=== PATIENT | male | born 1960 | race African-American/Black ===

== ENCOUNTER 2019-09-16 10:56 | Inpatient (IN) ==
[2019-09-16] MEDS ORDERED: ASPIRIN 325 MG TABLET PO STA (11:19)
[2019-09-16 12:05] LABS: Basophils % 0.4 % (0.0-0.8); Eosinophils # 0.2 10*3/uL (0.0-0.87); Eosinophils % 2.9 % (0.00-10.9); Hemoglobin 13.2 GM/DL (14.0-18.0); Immature Granulocytes % 0.2 %; Immature Granulocytes Absolute 0.01 #; Lymphocytes # 1.3 10*3/uL (1.4-4.0); Lymphocytes % 24.3 % (21.2-54.2); Mean Corpuscular HGB Conc 32.2 GM/DL (32-36); Mean Corpuscular Volume 86.1 FL (87-102); Mean Platelet Volume 9.5 FL (9.6-12.0); Monocytes % 7.2 % (1.7-12.7); Platelet Count 301 T/CUMM (130-400); Red Blood Count 4.76 MC/CUMM (3.8-5.5); Red Cell Distribution Width 13.7 % (9.3-17.3); White Blood Count 5.5 T/CUMM (4-12)
[2019-09-16 12:15] LABS: INR 1.1; Partial Thromboplastin Time 31.5 SECS (20.8-36.0)
[2019-09-16 12:23] LABS: Albumin 2.7 G/DL (3.4-5.0); Bilirubin,Total 0.9 MG/DL (0.2-1.0); Calcium 9.1 MG/DL (8.5-10.1); Total Protein 8.3 G/DL (6.4-8.3)
[2019-09-16] MEDS ORDERED: LORazepam 1 MG TABLET PO PRN (15:35)
[2019-09-16] MEDS ORDERED: POTASSIUM CHLORIDE RIDER 10 MEQ in PREMIX 1 EACH IV PRN (15:45)
[2019-09-16] MEDS ORDERED: ACETAMINOPHEN 325 MG TABLET PO PRN (15:45)
[2019-09-16] MEDS ORDERED: PROMETHAZINE 25 MG/1 ML VIAL IM PRN (15:45)
[2019-09-16] MEDS ORDERED: ONDANSETRON 4 MG/2 ML VIAL IV PRN (15:45)
[2019-09-16 16:24] LABS: Risk Ratio 3.03; Thyroid Stimulating Hormone 1.62 uIU/ml (0.358-3.74); VLDL CHOLESTEROL 12.4 MG/DL
[2019-09-16] MEDS: SODIUM CHLORIDE 0.9% 1,000 ML IV SCH (17:08)
[2019-09-16 17:17] LABS: Barbiturates Screen,Urine Negative (Negative); Benzodiazepines Screen,Urine Negative (Negative); Cannabinoid Screen,Urine Negative (Negative); Opiate Screen,Urine Negative (Negative); Phencyclidine Screen,Urine Negative (Negative)
[2019-09-16] MEDS: cefTRIAXone 1,000 MG in SYRINGE 1 EACH IV SCH (18:32)
[2019-09-16] MEDS: AZITHROMYCIN INJ 500 MG in SODIUM CHLORIDE 0.9% 250 ML IV SCH (18:39)
[2019-09-16 19:23] LABS: HIV Antigen/Antibody Result Nonreactive (Nonreactive)
[2019-09-16 19:25] LABS: Hepatitis B Core IgM Quant < 0.05 Index; Hepatitis B Surface Ag Quant < 0.10 Index; Hepatitis B Surface Ag Result Negative (Negative); Hepatitis C Virus Ab Quant 0.21 Index; Hepatitis C Virus Ab Result Negative (Negative)
[2019-09-16] MEDS: ALBUTEROL/IPRATROPIUM 3 ML NEB RESP TX SCH (19:27)
[2019-09-16] MEDS: DOCUSATE SODIUM 100 MG CAPSULE PO SCH (20:39)
[2019-09-16] MEDS: guaiFENesin/DM ER 600-30 MG TABLET PO SCH (20:39)
[2019-09-17] MEDS: ALBUTEROL/IPRATROPIUM 3 ML NEB RESP TX SCH ×5 (00:46→20:18)
[2019-09-17] MEDS: SODIUM CHLORIDE 0.9% 1,000 ML IV SCH ×2 (06:01→21:51)
[2019-09-17 06:53] LABS: Basophils % 0.3 % (0.0-0.8); Eosinophils # 0.3 10*3/uL (0.0-0.87); Eosinophils % 4.1 % (0.00-10.9); Hematocrit 38.2 VOL% (42.0-52.0); Hemoglobin 12.4 GM/DL (14.0-18.0); Immature Granulocytes % 0.2 %; Immature Granulocytes Absolute 0.01 #; Lymphocytes # 1.7 10*3/uL (1.4-4.0); Lymphocytes % 27.4 % (21.2-54.2); Mean Corpuscular HGB Conc 32.5 GM/DL (32-36); Mean Corpuscular Volume 86.4 FL (87-102); Mean Platelet Volume 9.7 FL (9.6-12.0); Platelet Count 273 T/CUMM (130-400); Red Blood Count 4.42 MC/CUMM (3.8-5.5); Red Cell Distribution Width 13.6 % (9.3-17.3); White Blood Count 6.1 T/CUMM (4-12)
[2019-09-17 07:20] LABS: Albumin 2.6 G/DL (3.4-5.0); Calcium 8.6 MG/DL (8.5-10.1); Osmolality,Calculated 274.5 MOS/KG (273-304); Total Protein 7.7 G/DL (6.4-8.3)
[2019-09-17 07:30] LABS: Folate 7.8 NG/ML (5.4-24.0)
[2019-09-17] MEDS ORDERED: DIAZEPAM 5 MG TABLET PO ONE (09:37)
[2019-09-17] MEDS: guaiFENesin/DM ER 600-30 MG TABLET PO SCH ×2 (13:37→20:29)
[2019-09-17] MEDS: NICOTINE 21 MG/24 HR PATCH TRANSDERM SCH (13:37)
[2019-09-17] MEDS: methylPREDNISolone SOD SUC 40 MG/1 ML VIAL IV SCH ×2 (13:38→18:25)
[2019-09-17] MEDS: FOLIC ACID 1 MG TABLET PO SCH (13:38)
[2019-09-17] MEDS: DOCUSATE SODIUM 100 MG CAPSULE PO SCH ×2 (13:38→20:29)
[2019-09-17] MEDS: MULTIVITAMIN (CENTRUM) TABLET PO SCH (13:38)
[2019-09-17] MEDS: THIAMINE 200 MG/2 ML VIAL IV SCH (13:47)
[2019-09-17] MEDS: cefTRIAXone 1,000 MG in SYRINGE 1 EACH IV SCH (18:20)
[2019-09-17] MEDS: AZITHROMYCIN INJ 500 MG in SODIUM CHLORIDE 0.9% 250 ML IV SCH (18:22)
[2019-09-18] MEDS: ALBUTEROL/IPRATROPIUM 3 ML NEB RESP TX SCH ×3 (00:35→13:58)
[2019-09-18] MEDS: methylPREDNISolone SOD SUC 40 MG/1 ML VIAL IV SCH ×3 (03:21→17:38)
[2019-09-18 05:46] LABS: Hematocrit 38.4 VOL% (42.0-52.0); Hemoglobin 12.5 GM/DL (14.0-18.0); Immature Granulocytes % 0.2 %; Immature Granulocytes Absolute 0.01 #; Lymphocytes # 0.8 10*3/uL (1.4-4.0); Lymphocytes % 12.4 % (21.2-54.2); Mean Corpuscular HGB Conc 32.6 GM/DL (32-36); Mean Corpuscular Volume 85.7 FL (87-102); Mean Platelet Volume 9.8 FL (9.6-12.0); Monocytes % 1.4 % (1.7-12.7); Platelet Count 286 T/CUMM (130-400); Red Blood Count 4.48 MC/CUMM (3.8-5.5); Red Cell Distribution Width 13.5 % (9.3-17.3); White Blood Count 6.2 T/CUMM (4-12)
[2019-09-18 06:09] LABS: Albumin 2.5 G/DL (3.4-5.0); Bilirubin,Total 0.5 MG/DL (0.2-1.0); Total Protein 7.9 G/DL (6.4-8.3)
[2019-09-18] MEDS: THIAMINE 200 MG/2 ML VIAL IV SCH (09:56)
[2019-09-18] MEDS: FOLIC ACID 1 MG TABLET PO SCH (09:56)
[2019-09-18] MEDS: MULTIVITAMIN (CENTRUM) TABLET PO SCH (09:57)
[2019-09-18] MEDS: DOCUSATE SODIUM 100 MG CAPSULE PO SCH ×2 (09:57→21:49)
[2019-09-18] MEDS: guaiFENesin/DM ER 600-30 MG TABLET PO SCH ×2 (09:57→21:49)
[2019-09-18] MEDS: NICOTINE 21 MG/24 HR PATCH TRANSDERM SCH (09:57)
[2019-09-18] MEDS: cefTRIAXone 1,000 MG in SYRINGE 1 EACH IV SCH (17:10)
[2019-09-19] MEDS: ALBUTEROL/IPRATROPIUM 3 ML NEB RESP TX SCH ×4 (01:16→19:47)
[2019-09-19] MEDS: methylPREDNISolone SOD SUC 40 MG/1 ML VIAL IV SCH ×3 (02:44→17:50)
[2019-09-19 05:58] LABS: Basophils % 0.1 % (0.0-0.8); Hematocrit 36.6 VOL% (42.0-52.0); Immature Granulocytes % 0.5 %; Immature Granulocytes Absolute 0.06 #; Lymphocytes # 0.7 10*3/uL (1.4-4.0); Lymphocytes % 5.4 % (21.2-54.2); Mean Corpuscular HGB Conc 32.8 GM/DL (32-36); Mean Corpuscular Volume 85.7 FL (87-102); Mean Platelet Volume 9.9 FL (9.6-12.0); Platelet Count 283 T/CUMM (130-400); Red Blood Count 4.27 MC/CUMM (3.8-5.5); Red Cell Distribution Width 13.6 % (9.3-17.3); White Blood Count 11.9 T/CUMM (4-12)
[2019-09-19 06:18] LABS: Alanine Aminotransferase 14 U/L (16-61); Albumin 2.5 G/DL (3.4-5.0); Alkaline Phosphatase 140 U/L (45-117); Aspartate Amino Transferase 11 U/L (0-37); Bilirubin,Total < 0.39 MG/DL (0.2-1.0); Blood Urea Nitrogen 13 MG/DL (7-18); Calcium 8.8 MG/DL (8.5-10.1); Estimated Glom Filtration Rate 125 ML/MIN; Glucose 108 MG/DL (74-106); Osmolality,Calculated 270.1 MOS/KG (273-304); Total Protein 7.3 G/DL (6.4-8.3)
[2019-09-19 06:48] LABS: Band Neutrophils 1 % (0-10); Lymphocytes 4 % (20-55); Platelet Estimate Normal; Segmented Neutrophils 94 % (50-85); Total Cells Counted 100
[2019-09-19] MEDS: MULTIVITAMIN (CENTRUM) TABLET PO SCH (09:00)
[2019-09-19] MEDS: FOLIC ACID 1 MG TABLET PO SCH (09:00)
[2019-09-19] MEDS: guaiFENesin/DM ER 600-30 MG TABLET PO SCH ×2 (09:00→20:49)
[2019-09-19] MEDS: NICOTINE 21 MG/24 HR PATCH TRANSDERM SCH (09:00)
[2019-09-19] MEDS: AZITHROMYCIN 250 MG TABLET PO SCH (09:01)
[2019-09-19] MEDS: DOCUSATE SODIUM 100 MG CAPSULE PO SCH ×2 (09:01→20:49)
[2019-09-19] MEDS: THIAMINE 200 MG/2 ML VIAL IV SCH (09:01)
[2019-09-19] MEDS: cefTRIAXone 1,000 MG in SYRINGE 1 EACH IV SCH (16:57)
[2019-09-19] MEDS: MORPHINE 4 MG/1 ML VIAL IV PRN (23:46)
[2019-09-20] MEDS: ALBUTEROL/IPRATROPIUM 3 ML NEB RESP TX SCH ×4 (00:56→19:35)
[2019-09-20] MEDS: methylPREDNISolone SOD SUC 40 MG/1 ML VIAL IV SCH ×3 (02:52→18:56)
[2019-09-20 05:43] LABS: Basophils % 0.1 % (0.0-0.8); Hematocrit 35.8 VOL% (42.0-52.0); Hemoglobin 11.7 GM/DL (14.0-18.0); Immature Granulocytes % 0.2 %; Immature Granulocytes Absolute 0.02 #; Lymphocytes % 11.9 % (21.2-54.2); Mean Corpuscular HGB Conc 32.7 GM/DL (32-36); Mean Corpuscular Volume 86.1 FL (87-102); Mean Platelet Volume 10.2 FL (9.6-12.0); Monocytes % 3.9 % (1.7-12.7); Neutrophils % 83.9 % (38.7-73.9); Platelet Count 288 T/CUMM (130-400); Red Blood Count 4.16 MC/CUMM (3.8-5.5); Red Cell Distribution Width 13.8 % (9.3-17.3); White Blood Count 8.5 T/CUMM (4-12)
[2019-09-20 06:02] LABS: Albumin 2.6 G/DL (3.4-5.0); Bilirubin,Total 0.4 MG/DL (0.2-1.0); Calcium 8.7 MG/DL (8.5-10.1); Osmolality,Calculated 275.7 MOS/KG (273-304); Total Protein 7.3 G/DL (6.4-8.3)
[2019-09-20] MEDS: NICOTINE 21 MG/24 HR PATCH TRANSDERM SCH (09:36)
[2019-09-20] MEDS: DOCUSATE SODIUM 100 MG CAPSULE PO SCH ×2 (09:37→20:28)
[2019-09-20] MEDS: THIAMINE 200 MG/2 ML VIAL IV SCH (09:37)
[2019-09-20] MEDS: MULTIVITAMIN (CENTRUM) TABLET PO SCH (09:37)
[2019-09-20] MEDS: guaiFENesin/DM ER 600-30 MG TABLET PO SCH ×2 (09:37→20:28)
[2019-09-20] MEDS: AZITHROMYCIN 250 MG TABLET PO SCH (09:41)
[2019-09-20] MEDS: FOLIC ACID 1 MG TABLET PO SCH (09:42)
[2019-09-20] MEDS: cefTRIAXone 1,000 MG in SYRINGE 1 EACH IV SCH (18:56)
[2019-09-21] MEDS: ALBUTEROL/IPRATROPIUM 3 ML NEB RESP TX SCH ×4 (00:50→19:43)
[2019-09-21] MEDS: methylPREDNISolone SOD SUC 40 MG/1 ML VIAL IV SCH ×3 (02:11→18:31)
[2019-09-21] MEDS: NICOTINE 21 MG/24 HR PATCH TRANSDERM SCH (09:24)
[2019-09-21] MEDS: DOCUSATE SODIUM 100 MG CAPSULE PO SCH ×2 (09:25→23:57)
[2019-09-21] MEDS: guaiFENesin/DM ER 600-30 MG TABLET PO SCH ×2 (09:25→20:44)
[2019-09-21] MEDS: FOLIC ACID 1 MG TABLET PO SCH (09:25)
[2019-09-21] MEDS: AZITHROMYCIN 250 MG TABLET PO SCH (09:25)
[2019-09-21] MEDS: MULTIVITAMIN (CENTRUM) TABLET PO SCH (09:26)
[2019-09-21] MEDS: THIAMINE 200 MG/2 ML VIAL IV SCH (09:26)
[2019-09-21] MEDS: MORPHINE 4 MG/1 ML VIAL IV PRN ×2 (11:27→20:57)
[2019-09-21] MEDS: cefTRIAXone 1,000 MG in SYRINGE 1 EACH IV SCH (17:05)
[2019-09-22] MEDS: ALBUTEROL/IPRATROPIUM 3 ML NEB RESP TX SCH ×4 (02:04→19:42)
[2019-09-22] MEDS: methylPREDNISolone SOD SUC 40 MG/1 ML VIAL IV SCH ×3 (03:16→18:02)
[2019-09-22] MEDS: NICOTINE 21 MG/24 HR PATCH TRANSDERM SCH (10:09)
[2019-09-22] MEDS: FOLIC ACID 1 MG TABLET PO SCH (10:10)
[2019-09-22] MEDS: MULTIVITAMIN (CENTRUM) TABLET PO SCH (10:10)
[2019-09-22] MEDS: AZITHROMYCIN 250 MG TABLET PO SCH (10:10)
[2019-09-22] MEDS: guaiFENesin/DM ER 600-30 MG TABLET PO SCH ×2 (10:10→20:50)
[2019-09-22] MEDS: DOCUSATE SODIUM 100 MG CAPSULE PO SCH ×2 (10:10→20:48)
[2019-09-22] MEDS: THIAMINE 200 MG/2 ML VIAL IV SCH (10:11)
[2019-09-22] MEDS: cefTRIAXone 1,000 MG in SYRINGE 1 EACH IV SCH (15:46)
[2019-09-22] MEDS: LIDOCAINE 5% PATCH TRANSDERM SCH (20:49)
[2019-09-22] MEDS: oxyCODONE/ACETAMINOPHEN 5-325 MG TABLET PO PRN (20:49)
[2019-09-23] MEDS: ALBUTEROL/IPRATROPIUM 3 ML NEB RESP TX SCH ×4 (00:42→20:07)
[2019-09-23 05:06] LABS: QuantiFERON-Tb Gold Pl Negative (Negative); TB2 Ag Minus Result 0 IU/mL
[2019-09-23] MEDS: oxyCODONE/ACETAMINOPHEN 5-325 MG TABLET PO PRN ×3 (06:02→21:09)
[2019-09-23] MEDS: LIDOCAINE 5% PATCH TRANSDERM SCH ×2 (06:02→18:41)
[2019-09-23] MEDS: methylPREDNISolone SOD SUC 40 MG/1 ML VIAL IV SCH ×2 (07:39→18:41)
[2019-09-23] MEDS ORDERED: SODIUM PHOSPHATE ENEMA 133 ML BOTTLE RECTAL PRN (08:24)
[2019-09-23] MEDS ORDERED: LACTULOSE 20 GM/30 ML UDCUP PO PRN (08:24)
[2019-09-23] MEDS: FOLIC ACID 1 MG TABLET PO SCH (08:40)
[2019-09-23] MEDS: AZITHROMYCIN 250 MG TABLET PO SCH (08:40)
[2019-09-23] MEDS: MULTIVITAMIN (CENTRUM) TABLET PO SCH (08:40)
[2019-09-23] MEDS: THIAMINE 200 MG/2 ML VIAL IV SCH (08:40)
[2019-09-23] MEDS: guaiFENesin/DM ER 600-30 MG TABLET PO SCH ×2 (08:40→21:09)
[2019-09-23] MEDS: DOCUSATE SODIUM 100 MG CAPSULE PO SCH ×2 (08:41→21:08)
[2019-09-23] MEDS: NICOTINE 21 MG/24 HR PATCH TRANSDERM SCH (08:41)
[2019-09-23] MEDS: cefTRIAXone 1,000 MG in SYRINGE 1 EACH IV SCH (16:14)
[2019-09-24] MEDS: ALBUTEROL/IPRATROPIUM 3 ML NEB RESP TX SCH ×3 (00:33→13:30)
[2019-09-24] MEDS: oxyCODONE/ACETAMINOPHEN 5-325 MG TABLET PO PRN (06:12)
[2019-09-24] MEDS: methylPREDNISolone SOD SUC 40 MG/1 ML VIAL IV SCH (06:12)
[2019-09-24] MEDS: LIDOCAINE 5% PATCH TRANSDERM SCH (06:14)
[2019-09-24] MEDS: NICOTINE 21 MG/24 HR PATCH TRANSDERM SCH (08:58)
[2019-09-24] MEDS: DOCUSATE SODIUM 100 MG CAPSULE PO SCH (08:58)
[2019-09-24] MEDS: MULTIVITAMIN (CENTRUM) TABLET PO SCH (08:58)
[2019-09-24] MEDS: THIAMINE 200 MG/2 ML VIAL IV SCH (08:58)
[2019-09-24] MEDS: guaiFENesin/DM ER 600-30 MG TABLET PO SCH (08:58)
[2019-09-24] MEDS: FOLIC ACID 1 MG TABLET PO SCH (08:58)
[2019-09-24 16:00] VITALS: BP 136/80
== END 2019-09-24 16:12 | disposition home or self-care (01) | DRG 181 ==
LOC: N.ED 10:56 → N.EDINP 15:32 → SUATTDRO 15:32 → N.4E 17:13
PROVIDERS: ADMIT Internal Medicine Cardiovascular Disease; ATTEND Internal Medicine

== ENCOUNTER 2021-03-30 16:45 | Observation (INO) ==
[~2021-03-30 16:45] MED LIST: AZITHROMYCIN INJ 500 MG in SODIUM CHLORIDE 0.9% 250 ML IV SCH
[2021-03-30] MEDS ORDERED: ASPIRIN CHEW 81 MG TABLET PO STA (18:18)
[2021-03-30] MEDS ORDERED: MORPHINE 4 MG/1 ML VIAL IV STA (18:18)
[2021-03-30] MEDS ORDERED: PANTOPRAZOLE 40 MG VIAL IV STA (18:18)
[2021-03-30 18:27] LABS: Eosinophils % 0.1 % (0.00-10.9); Hematocrit 46.9 VOL% (42.0-52.0); Hemoglobin 15.3 GM/DL (14.0-18.0); Immature Granulocytes % 1.1 %; Immature Granulocytes Absolute 0.08 #; Lymphocytes # 0.7 10*3/uL (1.4-4.0); Lymphocytes % 9.7 % (21.2-54.2); Mean Corpuscular HGB Conc 32.6 GM/DL (32-36); Mean Corpuscular Volume 84.5 FL (87-102); Mean Platelet Volume 9.4 FL (9.6-12.0); Neutrophils % 83.1 % (38.7-73.9); Platelet Count 187 T/CUMM (130-400); Red Blood Count 5.55 MC/CUMM (3.8-5.5); Red Cell Distribution Width 17.5 % (9.3-17.3); White Blood Count 7.2 T/CUMM (4-12)
[2021-03-30 18:39] LABS: INR 2.5; Partial Thromboplastin Time 37.2 SECS (23.9-33.8)
[2021-03-30 18:40] LABS: PT Patient Result 25.8 SECS (10.5-12.0)
[2021-03-30] MEDS ORDERED: SODIUM CHLORIDE 0.9% 1,000 ML IV STA (18:59)
[2021-03-30] MEDS ORDERED: DICYCLOMINE 20 MG/2 ML AMP IM ONE ×2 (18:59→19:00)
[2021-03-30 19:30] LABS: Alanine Aminotransferase 37 U/L (16-61); Albumin 2.9 G/DL (3.4-5.0); Alkaline Phosphatase 73 U/L (45-117); Amylase 93 U/L (25-115); Aspartate Amino Transferase 16 U/L (0-37); Bilirubin,Total < 0.39 MG/DL (0.2-1.0); Blood Urea Nitrogen 23 MG/DL (7-18); Calcium 9.1 MG/DL (8.5-10.1); Carbon Dioxide 28 MMOL/L (21-32); Estimated Glom Filtration Rate 92 ML/MIN; Glucose 86 MG/DL (74-106); Potassium 4.3 MMOL/L (3.5-5.1); Sodium 136 MMOL/L (136-145); Total Protein 6.5 G/DL (6.4-8.2)
[2021-03-30 20:18] LABS: Bilirubin,Urine Negative (Negative); Blood, Urine Small mg/dL (Negative); Glucose,Urine (UA) Negative (Negative); Ketones,Urine Negative (Negative); Mucus,Urine Occasional /LPF (Occasional); Nitrite,Urine Negative (Negative); Protein,Urine Negative; RBC,Urine 2 /HPF (0-4); Urine Appearance Slightly Hazy (Clear); Urine Color Yellow (Yellow); Urine Specific Gravity 1.016 (1.001-1.035); Urine Urobilinogen < 2.0 EU/DL (0.2-1.0)
[2021-03-30] MEDS ORDERED: ENOXAPARIN 100 MG/ML SYRINGE SUBCUT STA (20:20)
[2021-03-30 20:30] LABS: Barbiturates Screen,Urine Negative (Negative); Benzodiazepines Screen,Urine Negative (Negative); Cannabinoid Screen,Urine Negative (Negative); Opiate Screen,Urine Positive (Negative); Phencyclidine Screen,Urine Negative (Negative)
[2021-03-30] MEDS ORDERED: cefTRIAXone 1,000 MG in SODIUM CHLORIDE 0.9% 100 ML IV STA (21:40)
[2021-03-30 22:31] LABS: INR 1.1; PT Patient Result 12.6 SECS (10.5-12.0); Partial Thromboplastin Time 37.9 SECS (23.9-33.8)
[2021-03-30] MEDS ORDERED: WARFARIN 5 MG TABLET PO STA (23:17)
[2021-03-31] MEDS ORDERED: ONDANSETRON 4 MG/2 ML VIAL IV PRN (00:07)
[2021-03-31] MEDS ORDERED: diphenhydrAMINE CAP 25 MG CAPSULE PO PRN (00:07)
[2021-03-31] MEDS ORDERED: guaiFENesin/DM ER 600-30 MG TABLET PO PRN (00:07)
[2021-03-31] MEDS ORDERED: ZALEPLON 5 MG CAPSULE PO PRN (00:07)
[2021-03-31] MEDS ORDERED: hydrALAZINE 20 MG/1 ML VIAL IV PRN (00:07)
[2021-03-31] MEDS ORDERED: GLUCAGON 1 MG VIAL IM PRN (00:07)
[2021-03-31] MEDS ORDERED: DEXTROSE 50% 25 GM/50 ML VIAL IV PRN (00:07)
[2021-03-31] MEDS ORDERED: NICOTINE 21 MG/24 HR PATCH TRANSDERM PRN (00:07)
[2021-03-31] MEDS: ALBUTEROL/IPRATROPIUM 3 ML NEB RESP TX SCH ×4 (00:59→22:00)
[2021-03-31] MEDS: SODIUM CHLORIDE 0.9% 1,000 ML IV SCH ×3 (01:35→22:19)
[2021-03-31] MEDS: MORPHINE 4 MG/1 ML VIAL IV PRN ×2 (03:11→09:57)
[2021-03-31 04:41] LABS: Basophils % 0.2 % (0.0-0.8); Eosinophils % 0.1 % (0.00-10.9); Hematocrit 44.5 VOL% (42.0-52.0); Hemoglobin 15.4 GM/DL (14.0-18.0); Immature Granulocytes % 1.2 %; Immature Granulocytes Absolute 0.11 #; Lymphocytes # 0.8 10*3/uL (1.4-4.0); Lymphocytes % 9.1 % (21.2-54.2); Mean Corpuscular HGB Conc 34.6 GM/DL (32-36); Mean Corpuscular Volume 82.4 FL (87-102); Mean Platelet Volume 9.6 FL (9.6-12.0); Monocytes % 5.3 % (1.7-12.7); Neutrophils % 84.1 % (38.7-73.9); Platelet Count 177 T/CUMM (130-400); Red Cell Distribution Width 17.4 % (9.3-17.3); White Blood Count 9.3 T/CUMM (4-12)
[2021-03-31 05:03] LABS: Calcium 8.8 MG/DL (8.5-10.1); Osmolality,Calculated 264.4 MOS/KG (273-304); Potassium 3.7 MMOL/L (3.5-5.1)
[2021-03-31] MEDS ORDERED: ENOXAPARIN 60 MG/0.6 ML SYRINGE SUBCUT SCH (09:00)
[2021-03-31] MEDS: DEXAMETHASONE 4 MG TABLET PO SCH ×2 (09:58→22:14)
[2021-03-31] MEDS: DOCUSATE SODIUM 100 MG CAPSULE PO SCH ×2 (09:58→22:38)
[2021-03-31] MEDS: levETIRAcetam 500 MG TABLET PO SCH ×2 (09:58→22:15)
[2021-03-31] MEDS: PANTOPRAZOLE 40 MG TABLET PO SCH (09:58)
[2021-03-31] MEDS ORDERED: MAGNESIUM HYDROXIDE SUSP 30 ML UDCUP PO ONE (15:12)
[2021-03-31] MEDS: POLYETHYLENE GLYCOL POWDER 17 GM PACK PO SCH (22:13)
[2021-03-31] MEDS: APIXABAN 5 MG TABLET PO SCH (22:14)
[2021-03-31] MEDS: SENNA 8.6 MG TABLET PO SCH (22:15)
[2021-03-31] MEDS: cefTRIAXone 1,000 MG in SODIUM CHLORIDE 0.9% 100 ML IV SCH (22:16)
[2021-04-01] MEDS: AZITHROMYCIN INJ 500 MG in SODIUM CHLORIDE 0.9% 250 ML IV SCH (02:02)
[2021-04-01] MEDS: ALBUTEROL/IPRATROPIUM 3 ML NEB RESP TX SCH ×4 (02:21→19:58)
[2021-04-01 04:46] LABS: Basophils % 0.1 % (0.0-0.8); Hematocrit 42.4 VOL% (42.0-52.0); Hemoglobin 14.1 GM/DL (14.0-18.0); Immature Granulocytes % 0.7 %; Immature Granulocytes Absolute 0.06 #; Lymphocytes # 0.5 10*3/uL (1.4-4.0); Mean Corpuscular HGB Conc 33.3 GM/DL (32-36); Mean Platelet Volume 9.9 FL (9.6-12.0); Monocytes % 2.2 % (1.7-12.7); Platelet Count 176 T/CUMM (130-400); Red Blood Count 5.11 MC/CUMM (3.8-5.5); White Blood Count 8.3 T/CUMM (4-12)
[2021-04-01 04:57] LABS: Calcium 8.7 MG/DL (8.5-10.1); Osmolality,Calculated 264.4 MOS/KG (273-304); Potassium 4.1 MMOL/L (3.5-5.1)
[2021-04-01 05:15] LABS: Lymphocytes 5 % (20-55); Platelet Estimate Adequate; Segmented Neutrophils 95 % (50-85); Total Cells Counted 100
[2021-04-01] MEDS: levETIRAcetam 500 MG TABLET PO SCH ×2 (08:52→20:11)
[2021-04-01] MEDS: MULTIVITAMIN (CENTRUM) TABLET PO SCH (08:52)
[2021-04-01] MEDS: DEXAMETHASONE 4 MG TABLET PO SCH ×2 (08:52→20:10)
[2021-04-01] MEDS: PANTOPRAZOLE 40 MG TABLET PO SCH (08:52)
[2021-04-01] MEDS: APIXABAN 5 MG TABLET PO SCH ×2 (08:52→20:11)
[2021-04-01] MEDS: POLYETHYLENE GLYCOL POWDER 17 GM PACK PO SCH ×2 (08:52→20:11)
[2021-04-01] MEDS: DOCUSATE SODIUM 100 MG CAPSULE PO SCH ×2 (08:52→20:10)
[2021-04-01] MEDS: LINACLOTIDE 145 MCG CAPSULE PO SCH (15:52)
[2021-04-01] MEDS: SENNA 8.6 MG TABLET PO SCH (20:11)
[2021-04-01] MEDS: cefTRIAXone 1,000 MG in SODIUM CHLORIDE 0.9% 100 ML IV SCH (20:11)
[2021-04-01] MEDS: LUBIPROSTONE 8 MCG CAPSULE PO SCH (20:50)
[2021-04-02] MEDS: ALBUTEROL/IPRATROPIUM 3 ML NEB RESP TX SCH ×3 (00:19→13:15)
[2021-04-02] MEDS: AZITHROMYCIN INJ 500 MG in SODIUM CHLORIDE 0.9% 250 ML IV SCH (00:23)
[2021-04-02] MEDS: SODIUM CHLORIDE 0.9% 1,000 ML IV SCH (00:35)
[2021-04-02 06:03] LABS: Hematocrit 39.4 VOL% (42.0-52.0); Immature Granulocytes % 0.5 %; Immature Granulocytes Absolute 0.04 #; Lymphocytes # 0.4 10*3/uL (1.4-4.0); Lymphocytes % 5.5 % (21.2-54.2); Mean Corpuscular Volume 84.2 FL (87-102); Mean Platelet Volume 9.7 FL (9.6-12.0); Monocytes % 2.6 % (1.7-12.7); Neutrophils % 91.4 % (38.7-73.9); Platelet Count 168 T/CUMM (130-400); Red Blood Count 4.68 MC/CUMM (3.8-5.5); Red Cell Distribution Width 16.8 % (9.3-17.3); White Blood Count 7.9 T/CUMM (4-12)
[2021-04-02 06:17] LABS: Calcium 8.4 MG/DL (8.5-10.1); Osmolality,Calculated 269.1 MOS/KG (273-304)
[2021-04-02 06:40] LABS: Hypochromasia Slight; Lymphocytes 4 % (20-55); Microcytosis Slight; Platelet Estimate Adequate; Segmented Neutrophils 95 % (50-85); Total Cells Counted 100
[2021-04-02] MEDS: DOCUSATE SODIUM 100 MG CAPSULE PO SCH (08:18)
[2021-04-02] MEDS: levETIRAcetam 500 MG TABLET PO SCH (08:18)
[2021-04-02] MEDS: MULTIVITAMIN (CENTRUM) TABLET PO SCH (08:18)
[2021-04-02] MEDS: DEXAMETHASONE 4 MG TABLET PO SCH (08:18)
[2021-04-02] MEDS: APIXABAN 5 MG TABLET PO SCH (08:18)
[2021-04-02] MEDS: PANTOPRAZOLE 40 MG TABLET PO SCH (08:18)
[2021-04-02] MEDS: POLYETHYLENE GLYCOL POWDER 17 GM PACK PO SCH (08:19)
[2021-04-02] MEDS: LUBIPROSTONE 8 MCG CAPSULE PO SCH (08:19)
[2021-04-02] MEDS: LINACLOTIDE 145 MCG CAPSULE PO SCH (08:19)
[2021-04-02 15:52] VITALS: BP 104/76
[2021-04-02] MEDS ORDERED: APIXABAN 5 MG TABLET PO SCH (21:00)
[2021-04-03] MEDS ORDERED: LEVOFLOXACIN 500 MG TABLET PO SCH (09:00)
== END 2021-04-02 15:47 | disposition home or self-care (01) ==
LOC: N.EDINP 16:45 → N.ED 16:45 → N.4E 03-31 02:16
PROVIDERS: ADMIT Hospitalist; ATTEND Hospitalist